=== PATIENT | male | born 1960 | race Two or more races ===

== ENCOUNTER 2022-02-24 10:45 | Inpatient (IN) | payer OTHER ==
[~2022-02-24] VITALS: Ht 172.7 cm; Wt 93.0 kg
[2022-02-24] MEDS ORDERED: SIMVASTATIN5 MG PO (15:22)
[2022-02-27] MEDS ORDERED: SIMVASTATIN20 MG (10:45)
[2022-02-27] MEDS ORDERED: DICLOFENAC POTA50 MG (10:46)
== END 2022-03-02 20:25 | disposition home or self-care (01) | DRG 331 ==
LOC: SURG 02-27 05:25 → O/R 02-27 05:25 → SURH 02-27 07:00 → SURG 02-27 17:36
PROVIDERS: ADMIT Colon & Rectal Surgery; ATTEND Colon & Rectal Surgery
PROC: 07BB4ZZ Excision of Mesenteric Lymphatic, Percutaneous Endoscopic Approach (ICD-10-PCS; 2022-02-27)
PROC: 0WQF4ZZ Repair Abdominal Wall, Percutaneous Endoscopic Approach (ICD-10-PCS; 2022-02-27)
PROC: 0DTF4ZZ Resection of Right Large Intestine, Percutaneous Endoscopic Approach (ICD-10-PCS; principal; 2022-02-27 07:00)
DX: C18.2 Malignant neoplasm of ascending colon (principal); D12.1 Benign neoplasm of appendix; R59.0 Localized enlarged lymph nodes; K43.9 Ventral hernia without obstruction or gangrene; Z20.822 Contact with and (suspected) exposure to COVID-19